=== PATIENT | male | born 1960 | race Caucasian/White ===

== ENCOUNTER 2021-03-31 17:14 | Emergency (ER) | payer OTHER, SELFPAY ==
[2021-03-31 17:40] VITALS: BP 147/82; PULSE 69; RESP 18; TEMP 36.3; O2SAT 100
[2021-03-31] MEDS: LIDOCAINE HCL 1% LOCAL INJ 20 ML VIAL 5 ML INFILTRATE (18:10)
[2021-03-31] MEDS: LIDOCAINE, EPINEPHRINE, TETRACAINE VISCOUS SOLN 3 ML TOPICAL (18:10)
--- NOTE | 2021-03-31 18:18 | ED.WOUNDLAC ---
HPI - Wound/Laceration General Chief Complaint: Wound/Laceration Stated Complaint: right 2nd/3rd/4th finger cut Source: patient and RN notes reviewed Limitations: no limitations History of Present Illness HPI narrative: The left handed patient, previous mostly healthy with immunizations UTD, presents with right finger laceration. Patient states he lacerated his long finger on a gun site prior to arrival. He complains of mild pain and bleeding from the longitudinal, subcutaneous laceration. There is associated definite numbness distally to light touch, from a 4 cm, laceration on the ulnar aspect of his middle phalanges. No weakness, deformity, decreased range of motion, foreign body, joint involvement Related Data Home Medications Medication Instructions Recorded Confirmed metoprolol succinate 50 mg PO DAILY 03/31/21 03/31/21 simvastatin 20 mg PO DAILY 03/31/21 03/31/21 terbinafine HCl 250 mg PO DAILY 03/31/21 03/31/21 Allergies Allergy/AdvReac Type Severity Reaction Status Date / Time No Known Allergies Allergy Verified 03/31/21 17:52 Review of Systems Review of Systems: General/Constitutional: No weight loss,fever Eyes: N0: Redness,discharge Ears/Nose/Throat: No: Epistaxis,ear discharge Respiratory: Denies: Hemoptysis Gastrointestinal: No Vomiting, Bleeding-rectal Skin: No Lumps, eruption Neurologic: No Focal Weakness,Sz Hematologic: Denies: Petechiae/Purpura Psychiatric: No: Suicida ideationl All Other Systems: Reviewed and Negative [facility] Comments At time of signature, agree with nursing past medical, surgical, social and family history. There is no relevant family history pertinent to the presenting complaint Exam Narrative: General Appearance: Well appearing, Conjunctiva clear Ears: External ear normal, Auditory canal normal Nose: Normal nose, Nares clear Mouth/Throat: Normal appearing, Normal lips Neck: Supple Respiratory: Airway patent, No respiratory distress Skin: Warm, Dry, Normal color, 4cm linear subcutaneous lac middle phalanges with decreased sensation to light touch distally MS- finger: Normal strength (mostly intact, limited flexion/extension by pain), Tenderness (ulnar?laterally, with mild decreased ROM), trace swelling, Other (no anterior drawer, no collateral laxity,) Neurological: A&O x3, Normal affect Course Vital Signs Vital signs: Vital Signs Temperature 97.4 F L 03/31/21 17:40 Pulse Rate 69 03/31/21 17:40 Respiratory Rate 18 03/31/21 17:40 Blood Pressure 147/82 H 03/31/21 17:40 Pulse Oximetry 100 03/31/21 17:40 Temperature 97.4 F L 03/31/21 17:40 Pulse Rate 69 03/31/21 17:40 Respiratory Rate 18 03/31/21 17:40 Blood Pressure 147/82 H 03/31/21 17:40 Pulse Oximetry 100 03/31/21 17:40 Procedures Laceration Laceration 1: Date: 03/31/21 Site: hand Size (cm): 4 Description: linear and irregular Depth: simple, single layer Local Anesthetic: other anesthetic (LET) Amount of anesthesia used (mL): 1 Pre-repair: irrigated extensively ====== Skin Level ====== Skin layer closed with: nylon and dermabond Size (cm): 5-0 Number of sutures: 3 Technique: simple, interrupted ====== Subcutaneous Layer ====== ====== Muscle Layer ====== ====== Tendon Layer ====== Discharge Plan Discharge Clinical Impression: Finger laceration Patient Disposition: Home, Self-Care Condition: Improved Instructions: Finger Laceration (ED) Additional Instructions: Remove stitches in about a week Prescriptions: New cephalexin 500 mg capsule 1,000 mg PO Q12H 3 Days Qty: 12 RF: 0 mupirocin 2 % ointment 1 applic topical TID Qty: 30 RF: 0 tramadol 50 mg tablet 50 - 75 mg PO TID PRN (Reason: pain) Qty: 30 RF: 0 No Action metoprolol succinate 50 mg tablet extended release 24 hr 50 mg PO DAILY RF: 0 terbinafine HCl 250
== END 2021-03-31 18:55 | disposition home or self-care (01) ==
PROVIDERS: Emergency Provider Emergency Medicine; PCP Student in an Organized Health Care Education/Training Program
DX: S61.212A Laceration without foreign body of right middle finger without damage to nail, initial encounter (principal); W45.8XXA Other foreign body or object entering through skin, initial encounter; E78.00 Pure hypercholesterolemia, unspecified; I10 Essential (primary) hypertension
CPT/HCPCS: 12002; 99203; G0463

== ENCOUNTER 2021-04-21 20:40 | Emergency (ER) | payer OTHER, SELFPAY ==
--- NOTE | ~2021-04-21 | CT_ITS ---
EXAMINATION: CT abdomen pelvis w con DATE: 04/22/2021 01:58 INDICATION: Right lower quadrant pain with nausea and vomiting TECHNIQUE: Computed tomography (CT) of the abdomen and pelvis was performed with 100 mL Omnipaque-350 intravenous contrast. Automated exposure control and iterative reconstruction technique were employe d. The dose-length product was 878.46 mGy-cm. COMPARISON: None FINDINGS: 8 mm nodule in the posterior basilar segment of the left lower lobe. Heart size is normal. No pericar dial or pleural effusion. Atherosclerotic coronary artery calcification. Small sliding-type hiatal he rnia. Liver, gallbladder, spleen, pancreas and left adrenal gland are normal. 3.2 cm right adrenal ma ss. 3 x 4 x 5 mm at least partially obstructing stone at the right ureteropelvic junction with mild r ight hydronephrosis. A couple subcentimeter relatively low density left renal lesions which are too s mall to definitively characterize statistically most likely to represent renal cysts. Bowels includin g the appendix are normal. Bladder is normal. No free intraperitoneal gas or fluid. No pathologically enlarged abdominal or pelvic lymphadenopathy. Small fat-containing right inguinal hernia. Mild to mo derate spondylosis in the lumbar and lower thoracic spine. IMPRESSION: 1. At least partially obstructing 5 mm stone at the right ureteropelvic junction with mild right hydr onephrosis. 2. Indeterminate 3.2 cm right adrenal mass which in the absence of known malignancy most likely repre sents an adenoma. Recommend further evaluation with pre and postcontrast MRI or CT. 3. Small sliding-type hiatal hernia. Reviewed, dictated and finalized at location A. [facility] [employer] IMPRESSION: 1. At least partially obstructing 5 mm stone at the right ureteropelvic junctio n with mild right hydronephrosis. 2. Indeterminate 3.2 cm right adrenal mass which in the absence of known malign brenda most likely represents an adenoma. Recommend further evaluation with pre a nd postcontrast MRI or CT. 3. Small sliding-type hiatal hernia.
[2021-04-21 21:07] VITALS: BP 155/79; PULSE 63; RESP 20; TEMP 36.3; O2SAT 100
--- NOTE | 2021-04-22 00:53 | ED.ABDPAIN ---
HPI - Abdominal Pain General Chief Complaint: Abdominal Pain Stated Complaint: abd pain Time Seen by Provider: 04/21/21 23:59 Source: patient History of Present Illness HPI narrative: Patient presents with right lower quadrant abdominal pain. Reports symptoms started tonight were associated with nausea and vomiting. Denies any diarrhea. Reports recently constipated and has had multiple hard stools. Cognition evaluation pain reports his symptoms are improving. Initial pain was constant, achy, no radiation, no clear aggravating or alleviating factors. Denies any prior abdominal surgeries Related Data Home Medications Medication Instructions Recorded Confirmed metoprolol succinate 50 mg PO DAILY 03/31/21 03/31/21 simvastatin 20 mg PO DAILY 03/31/21 03/31/21 terbinafine HCl 250 mg PO DAILY 03/31/21 03/31/21 Allergies Allergy/AdvReac Type Severity Reaction Status Date / Time No Known Allergies Allergy Verified 04/21/21 21:11 Review of Systems Review of Systems: CONSTITUTIONAL: Denies fever, chills, or sweats. EYES: Denies visual changes, redness, or discharge. ENT: Denies rhinorrhea, congestion, sore throat, or otalgia. CARDIOVASCULAR: Denies chest pain, palpitations, or edema. RESPIRATORY: Denies cough or dyspnea. GASTROINTESTINAL: Reports abdominal pain, nausea, vomiting GENITOURINARY: Denies dysuria or hematuria. SKIN: Denies rash or itching. MUSCULOSKELETAL: Denies back pain, joint pain, or myalgia. NEUROLOGIC: Denies headache, numbness, dizziness, or weakness. PSYCHIATRIC: Denies anxiety or depression. All systems reviewed & are unremarkable except as noted in HPI and below PMFSH Past Medical History Medical History (Updated 04/22/21 @ 04:42 by Juwan Madsen MD) No significant past medical history Social History Social History (Updated 04/22/21 @ 00:54 by Juwan Madsen MD) Smoking status: Never smoker Exam Narrative: GENERAL: Well-appearing, well-nourished, and in no acute distress. HEAD: Normocephalic, atraumatic. EYES: PERRLA and EOMI. ENT: Nares clear, no rhinorrhea or epistaxis. Mucous membranes moist. NECK: Supple. No masses. No JVD ABDOMEN: Minimal right lower quadrant abdominal pain soft, nondistended EXTREMITIES: Normal range of motion. No edema. SKIN: Warm, dry, no rash. NEURO: No focal deficits. Alert and oriented x3. PSYCH: Normal mood and affect. Course Reevaluation(s) Reevaluation #1: Patient continues to feel much improved after initial evaluation. Results reviewed with patient. Given his good pain control he is likely appropriate follow-up with urology as an outpatient will discuss with urology. Date: 04/22/21 Time: 04:22 Consultations Consultation #1: Case cussed with urology who is comfortable with the outpatient plan. Date: 04/22/21 Time: 04:39 Vital Signs Vital signs: Vital Signs Temperature 36.3 C L 04/21/21 21:07 Pulse Rate 63 04/21/21 21:07 Respiratory Rate 20 04/21/21 21:07 Blood Pressure 155/79 H 04/21/21 21:07 Pulse Oximetry 100 04/21/21 21:07 Temperature 36.3 C L 04/21/21 21:07 Pulse Rate 71 04/22/21 04:59 Respiratory Rate 16 04/22/21 04:59 Blood Pressure 109/73 04/22/21 04:59 Pulse Oximetry 97 04/22/21 04:59 MDM - Abdominal Pain MDM Narrative Medical decision making narrative: H&P as above, vss, pt looks clinically well, exam tenderness on the right abdomen, labs with UA having a large amount of hematuria, img with a right UPJ stone, additional labs/img considered, symptomatic relief available as needed, on reevaluation pt continues to looks clinically well. Suspect symptoms related to UPJ stone, dns infected stone, perforation, pyelonephritis, acute kidney injury. plan to tx/monitor as op w/ urology f/u findings/plan discussed with pt, pt agree/comfortable with plan, return precautions given Lab Data Result diagrams: 04/22/21 00:54 04/22/21 00:54 Labs: Lab Results 04/22/21
[2021-04-22 01:12] LABS: Basophils Percent Auto 0.2 % (0.2-1.2); Hematocrit 51.9 % (42.0-52.0); Immature Granulocyte Absolute 0.04 K/mm3 (0.00-0.031); Immature Granulocyte Percent A 0.4 % (0-0.5); Lymphocytes Absolute Auto 0.69 K/mm3 (0.9-3.2); Lymphocytes Percent Auto 6.4 % (18.3-44.2); Mean Corpuscular HGB Conc 32.8 g/dl (32-36); Mean Corpuscular Hemoglobin 32.9 pg (26-34); Mean Corpuscular Volume 100.6 fl (80-100); Mean Platelet Volume 10.8 fl (7.4-10.4); Monocytes Absolute Auto 0.4 K/mm3 (0.1-0.6); Monocytes Percent Auto 3.9 % (2.6-8.5); Neutrophils Absolute Auto 9.6 K/mm3 (1.3-6.7); Neutrophils Percent Auto 89.1 % (45.5-73.1); Platelet Count Result 170 k/mm3 (150-375); Red Blood Count 5.16 M/mm3 (4.6-6.20); White Blood Count 10.7 K/mm3 (4.5-10.0)
[2021-04-22 01:23] LABS: Add Urine Microscopic? YES; Appearance Urine Cloudy (Clear); Bilirubin Urine Negative (Negative); Blood Urine 3+ (Negative); Color Urine Yellow (Yellow); Glucose Urine UA Negative (Negative); Ketones Urine Trace mg/dL (Negative); Leukocyte Esterase Ur Negative LEU/UL (Negative); Mucus Urine Rare /lpf; Nitrate Urine Negative (Negative); Protein Urine 1+ mg/dL (Negative); RBC Urine >75 /hpf (0-2); Specific Grav Ur 1.021 (1.001-1.035); Urobilinogen Urine Negative mg/dL (<2.0)
[2021-04-22 01:26] LABS: Alanine Aminotransferase 48 U/L (4-50); Albumin Level 4.8 g/dL (3.5-5.1); Alkaline Phosphatase 63 U/L (38-126); Anion Gap 11 mmol/L (8-16); Aspartate Amino Transferase 37 U/L (17-59); Bilirubin,Total 0.7 mg/dL (0.2-1.3); Blood Urea Nitrogen 18 mg/dL (9-20); Calcium 9.7 mg/dL (8.4-10.2); Carbon Dioxide 28 mmol/L (22-30); Chloride 104 mmol/L (98-107); Estimated CRCL calculation 71 ml/min; Estimated Glomerular Filt Rate > 60; Glucose 134 mg/dL (65-110); Lipase 144 U/L (23-300); Potassium 4.3 mmol/L (3.4-5.0); Sodium 143 mmol/L (137-145)
[2021-04-22 01:35] VITALS: BP 123/72; PULSE 50; RESP 17; O2SAT 99
[2021-04-22] MEDS: SODIUM CHLORIDE 0.9% IV 1,000 ML 999 ML IV CONT (01:36)
[2021-04-22 02:50] VITALS: BP 113/72; PULSE 83; RESP 15; O2SAT 97
[2021-04-22 04:59] VITALS: BP 109/73; PULSE 71; RESP 16; O2SAT 97
== END 2021-04-22 05:00 | disposition home or self-care (01) ==
PROVIDERS: Emergency Provider Emergency Medicine; PCP Student in an Organized Health Care Education/Training Program
DX: N20.1 Calculus of ureter (principal)
CPT/HCPCS: 36415; 74177; 80053; 81001; 83690; 85025; 96360; 96361; 99284; J7030; Q9967